=== PATIENT | male | born 1990 | race Caucasian/White ===

== ENCOUNTER 2019-04-11 15:20 | Emergency (ER) | payer MEDICAID, OTHER ==
[~2019-04-11] VITALS: Ht 175.3 cm; Wt 138.3 kg
[2019-04-11 15:33] VITALS: BP 141/85
[2019-04-11] MEDS ORDERED: KETOROLAC TROMETH 60MG/2ML VIAL IM ONE (15:45)
== END 2019-04-11 16:39 | disposition home or self-care (01) ==
LOC: EDBD 15:20 → ER 15:22
DX: S63.91XA Sprain of unspecified part of right wrist and hand, initial encounter (principal); S60.212A Contusion of left wrist, initial encounter; J45.909 Unspecified asthma, uncomplicated; V43.52XA Car driver injured in collision with other type car in traffic accident, initial encounter; Y93.89 Activity, other specified; Y99.8 Other external cause status; Y92.410 Unspecified street and highway as the place of occurrence of the external cause
CPT/HCPCS: 29125; 70450; 73130; 99284; J1885

== ENCOUNTER 2022-11-05 12:54 | Emergency (ER) | payer MEDICAID ==
[2022-11-05] MEDS ORDERED: CEPH-510 PO (15:40)
[2022-11-05 16:02] VITALS: BP 104/73
== END 2022-11-05 16:06 | disposition home or self-care (01) ==
LOC: ER 12:54
DX: L08.9 Local infection of the skin and subcutaneous tissue, unspecified (principal); R22.32 Localized swelling, mass and lump, left upper limb; J45.909 Unspecified asthma, uncomplicated